=== PATIENT | female | born 1995 | race African-American/Black ===

== ENCOUNTER 2019-12-26 11:09 | Emergency (ER) | payer OTHER, SELFPAY ==
[2019-12-26 11:22] VITALS: BP 146/98; PULSE 72; RESP 16; TEMP 35.6; O2SAT 98
--- NOTE | 2019-12-26 11:44 | ED.HA ---
HPI - Headache General Chief Complaint: Headache Stated Complaint: Migraine Time Seen by Provider: 12/26/19 11:28 Source: patient and RN notes reviewed Mode of arrival: ambulatory Limitations: no limitations History of Present Illness HPI Narrative: Patient presents today complaining of a left frontal headache that began suddenly at 5:00 this morning and is located in the left frontal area. It has been progressively worsening throughout the day and she currently rates her pain 10/10. Associated symptoms include severe nausea, vomiting, severe photophobia, dizziness, intermittent blurred vision. States this is the worst headache she has ever experienced and reports that I want to chop my head off. Denies recent illness, neck pain, phonophobia, numbness or tingling in the extremities, weakness, fever. She does report history of headaches, but denies diagnosis of migraines. She took a dose of Aleve at 830 this morning, which has not provided any relief. MD elicited complaint: headache Related Data Home Medications Medication Instructions Recorded Confirmed No Home Medications 12/26/19 12/26/19 Allergies Allergy/AdvReac Type Severity Reaction Status Date / Time No Known Allergies Allergy Verified 12/26/19 11:22 Review of Systems Review of Systems: Narrative: CONSTITUTIONAL: Denies body aches, fever, chills, or sweats. EYES: Denies redness, or discharge. + Photophobia, intermittent blurred vision ENT: Denies rhinorrhea, congestion, sore throat, or otalgia. CARDIOVASCULAR: Denies chest pain, palpitations, or edema. RESPIRATORY: Denies cough or dyspnea. GASTROINTESTINAL: Denies abdominal pain, or diarrhea.+ Nausea and vomiting GENITOURINARY: Denies dysuria or hematuria. SKIN: Denies rash, itching, or wounds. MUSCULOSKELETAL: Denies back pain, joint pain, or myalgia. NEUROLOGIC: Denies numbness, tingling, or weakness. + Headache, dizziness PSYCH: Denies depression or anxiety. PMFSH Comments At time of signature, I have reviewed and agree with nursing past medical, surgical, social and family history unless otherwise noted. Please see nursing chart for further information. There is no relevant family history pertinent to the presenting complaint Exam Narrative: Exam Narrative: GENERAL: Ill-appearing, well-nourished, and in moderate pain distress, restless HEAD: Normocephalic, atraumatic. EYES: EOMI. PERRL. No redness or drainage. Conjunctivae normal. Does not want to open eyes due to severe photophobia. ENT: Mucous membranes pink and moist. Nares clear. No rhinorrhea. NECK: Normal AROM. Supple. No lymphadenopathy. CHEST: No respiratory distress. Clear to auscultation. HEART: Regular rate and rhythm. No murmur appreciated. Normal peripheral pulses. EXTREMITIES: Normal range of motion. No edema. SKIN: Warm, dry, no rash. Capillary refill normal. Normal skin turgor. NEURO: No focal deficits. Alert and oriented x3. Gait steady. Hand general expeditor normal. Foot push and pulls normal. Cranial nerves intact. Course Course Emergency Course: Due to exam, demeanor, and that this is patient's worst headache ever, I feel it indicated to transfer her to the ER for further evaluation and treatment. Vital Signs Vital signs: Vital Signs Temperature 96.1 F L 12/26/19 11:22 Pulse Rate 72 12/26/19 11:22 Respiratory Rate 16 12/26/19 11:22 Blood Pressure 146/98 H 12/26/19 11:22 Pulse Oximetry 98 12/26/19 11:22 Temperature 96.1 F L 12/26/19 11:22 Pulse Rate 72 12/26/19 11:22 Respiratory Rate 16 12/26/19 11:22 Blood Pressure 146/98 H 12/26/19 11:22 Pulse Oximetry 98 12/26/19 11:22 Reviewed Transfer Transfered to: [place] Transfer rationale: Severe headache Accepting physician: Denny [facility] - Headache Differential Diagnosis Differential diagnosis: Likely migraine, tension headache, subarachnoid hemorrhage, headache and meningitis Critical Care Time Critical Care Time Critical Care Time:
[2019-12-26] MEDS: ONDANSETRON HCL ODT 4 MG TABLET SUBLINGUAL (11:45)
== END 2019-12-26 11:50 | disposition short-term general hospital (02) ==
PROVIDERS: Emergency Provider Nurse Practitioner
DX: R51 Headache (principal)
CPT/HCPCS: 99203; A9270; G0463

== ENCOUNTER 2019-12-26 12:07 | Emergency (ER) | payer OTHER, SELFPAY ==
[2019-12-26 12:15] VITALS: BP 131/87; PULSE 63; RESP 16; TEMP 35.8; O2SAT 95
[2019-12-26 12:48] VITALS: BP 131/87; PULSE 63; RESP 18; TEMP 35.8; O2SAT 95
--- NOTE | 2019-12-26 13:07 | ED.HA ---
HPI - Headache General Chief Complaint: Headache Stated Complaint: headache Time Seen by Provider: 12/26/19 12:55 History of Present Illness HPI Narrative: Headache since about 5 AM. Gradual onset. Bifrontal. Associated with blurry vision, nausea, vomiting, photophobia. Seen at urgent care and transfered her for further evaluation. Symptoms have greatly improved on arrival here. She has occasional headaches, this one is more severe than usual. Related Data Home Medications Medication Instructions Recorded Confirmed No Home Medications 12/26/19 12/26/19 Allergies Allergy/AdvReac Type Severity Reaction Status Date / Time No Known Allergies Allergy Verified 12/26/19 12:50 Review of Systems Review of Systems: All systems reviewed & are unremarkable except as noted in HPI and below Constitutional: Constitutional: Denies fever(s) and Denies weakness Eyes: Eyes: Reports change in vision and Reports photophobia ENT: Denies sore throat Cardiovascular: Cardiovascular: Denies chest pain Respiratory: Respiratory: Denies dyspnea Gastrointestinal: Gastrointestinal: Denies abdominal pain, Reports nausea and Reports vomiting Genitourinary: Genitourinary: Denies dysuria Neurologic: Denies dizziness, Reports headache(s), Denies numbness and Denies weakness PMFSH Social History Social History Smoking status: Never smoker Exam Const: General: healthy appearing, no acute distress and alert Nutritional Appearance: well nourished Orientation/consciousness: patient oriented x3 HENMT: Head: normal to inspection Eyes: Pupils: Equal, round and reactive pupils present EOM: EOMs intact bilaterally Neck: Neck: normal visual inspection and no lymphadenopathy Chest: Chest palpation & inspection: no tenderness Resp: Effort & Inspection: normal respiratory effort Auscultation: clear to auscultation bilaterally, no rales, no rhonchi and no wheezes Cardio: Jugular venous distension: no JVD Rate: regular rate Rhythm: regular rhythm Heart sounds: no murmurs GI: Inspection: non-distended GI Palp: Yes Soft to palpation and No Tenderness to palpation present (GI) Skin: General skin exam: normal color Neuro: General: patient oriented x3, moves all extremities, no focal motor deficits and CN's II-XI intact bilaterally Speech: normal speech Gait exam (Neuro): Normal gait present Extrem: General: no edema Psych: Appearance: well kempt Affect: normal affect Course Vital Signs Vital signs: Vital Signs Temperature 35.8 C L 12/26/19 12:15 Pulse Rate 63 12/26/19 12:15 Respiratory Rate 16 12/26/19 12:15 Blood Pressure 131/87 12/26/19 12:15 Pulse Oximetry 95 12/26/19 12:15 Temperature 35.8 C L 12/26/19 12:48 Pulse Rate 63 12/26/19 12:48 Respiratory Rate 18 12/26/19 12:48 Blood Pressure 131/87 12/26/19 12:48 Pulse Oximetry 95 12/26/19 12:48 MDM - Headache MDM Narrative Medical decision making narrative: Symptoms most consistent with migraine. Significantly improved already. No CT at this time. Will attempt symptomatic treatment and reevaluate. Headache completely resolved with treatment. Differential Diagnosis Differential diagnosis: Likely migraine and tension headache Medical Records Attestation: I reviewed the patient's medical records. Discharge Plan Discharge Clinical Impression: Migraine Patient Disposition: Home, Self-Care Condition: Stable Instructions: Migraine Headache (ED) Prescriptions: No Action No Home Medications RF: 0 Follow-up/Referrals: PHYSICIAN,MANUFACTURING DEVELOPMENT ENGINEER [Primary Care Provider] - Maikel Contreras MD [Physician] -
[2019-12-26] MEDS: diphenhydrAMINE HCl INJ 50 MG/ML VIAL 25 MG IV PUSH (13:24)
[2019-12-26] MEDS: SODIUM CHLORIDE 0.9% IV 1,000 ML 999 ML IV CONT (13:24)
[2019-12-26] MEDS: METOCLOPRAMIDE HCL INJ 10 MG/2 ML VIAL IV PUSH (13:24)
== END 2019-12-26 14:12 | disposition home or self-care (01) ==
PROVIDERS: Emergency Provider Emergency Medicine
DX: G43.909 Migraine, unspecified, not intractable, without status migrainosus (principal)
CPT/HCPCS: 96365; 96375; 99284; A9270; J0131; J1200; J2765; J7030